=== PATIENT | male | born 1995 | race Caucasian/White ===

== ENCOUNTER 2017-10-29 16:30 | Emergency (ER) | payer BC ==
[~2017-10-29] VITALS: Ht 180.3 cm; Wt 84.0 kg
[2017-10-29 16:35] VITALS: BP 141/68; PULSE 84; RESP 16; TEMP 99; O2SAT 99
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
[2017-10-29] MEDS ORDERED: KETOROLAC TROMETHAMINE 60 MG/2 ML (IM) VIAL IM ONE (17:00)
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
[2017-10-29] MEDS ORDERED: IBUP-232 PO (18:04)
== END 2017-10-29 18:22 | disposition home or self-care (01) ==
LOC: PHEFT 16:30
DX: S42.031A Displaced fracture of lateral end of right clavicle, initial encounter for closed fracture (principal); S70.311A Abrasion, right thigh, initial encounter; V86.56XA Driver of dirt bike or motor/cross bike injured in nontraffic accident, initial encounter
CPT/HCPCS: 73030; 96372